=== PATIENT | female | born 1970 | race African-American/Black ===

== ENCOUNTER 2020-11-16 09:35 | Emergency (ER) | payer MEDICARE, OTHER ==
[~2020-11-16] VITALS: Ht 149.9 cm; Wt 75.0 kg
[2020-11-16] MEDS ORDERED: ACETAMINOPHEN 325MG TABLET PO ONE (10:30)
[2020-11-16] MEDS ORDERED: KETOROLAC 60MG/2ML VIAL IM ONE (10:30)
[2020-11-16 11:43] LABS: CLARITY URINE CLEAR (CLEAR); COLOR URINE DARK YELLOW (YELLOW); KETONES URINE 1+ (NEGATIVE); LEUKOCYTE ESTERASE URINE NEGATIVE (NEGATIVE); NITRITE URINE NEGATIVE (NEGATIVE); OCCULT BLOOD URINE 2+ (NEGATIVE); PROTEIN URINE TRACE (NEGATIVE); SPECIFIC GRAVITY URINE 1.031 (1.005-1.030)
[2020-11-16] MEDS ORDERED: CYCLOBENZAPRINE 10MG TABLET PO ONE (12:00)
[2020-11-16] MEDS ORDERED: NAPR-1176 MT (12:42)
[2020-11-16] MEDS ORDERED: TOPUD MT (12:42)
[2020-11-16] MEDS ORDERED: CYCL5TAB MT (12:42)
[2020-11-16 12:59] VITALS: BP 128/70
== END 2020-11-16 12:56 | disposition home or self-care (01) ==
LOC: ER 09:35
DX: M54.5 Low back pain (principal); Z88.0 Allergy status to penicillin; Z88.1 Allergy status to other antibiotic agents; Z98.890 Other specified postprocedural states; Z98.51 Tubal ligation status; Z90.710 Acquired absence of both cervix and uterus
CPT/HCPCS: 81003; 81025; 96372; 99283; J1885

== ENCOUNTER 2025-02-14 08:35 | Emergency (ER) | payer MEDICARE, OTHER ==
[~2025-02-14] VITALS: Ht 165.1 cm; Wt 76.0 kg
[~2025-02-14 08:35] MED LIST: CYCL5TAB3 MT; NAPR-1176 MT; TOPUD MT
[2025-02-14 08:40] VITALS: O2SAT 99
[2025-02-14] MEDS: DIPHENHYDRAMINE 12.5MG/5ML UDC PO ONE (09:01)
[2025-02-14] MEDS: FAMOTIDINE 20MG TABLET PO ONE (09:01)
[2025-02-14] MEDS: DEXAMETHASONE 4MG TABLET PO ONE (09:02)
[2025-02-14] MEDS ORDERED: TRIA15CR61 TP (12:00)
[2025-02-14] MEDS ORDERED: EPIN0.3P3 IM (12:00)
[2025-02-14 12:18] VITALS: BP 122/80; PULSE 60; RESP 16; TEMP 36.9; O2SAT 99
== END 2025-02-14 12:19 | disposition home or self-care (01) ==
LOC: ER 08:35
DX: T78.40XA Allergy, unspecified, initial encounter (principal); Z88.0 Allergy status to penicillin; Z88.1 Allergy status to other antibiotic agents; X58.XXXA Exposure to other specified factors, initial encounter; Y93.89 Activity, other specified; Y92.89 Other specified places as the place of occurrence of the external cause; Y99.8 Other external cause status
CPT/HCPCS: 99284; J8540; Q0163